=== PATIENT | female | born 2005 | race Caucasian/White ===

== ENCOUNTER 2024-02-15 18:06 | Emergency (ER) | payer BC, SELFPAY ==
[2024-02-15 18:09] VITALS: BP 119/80
--- NOTE | 2024-02-15 18:25 | ED.GENMED ---
History of Present Illness
General
Chief Complaint: Fever
Source: patient
Exam Limitations: none
Time Seen by Provider: 02/15/24 18:16
Nursing documentation reviewed up to this point in time: agreed with
History of Present Illness
History of Present Illness:
18 yo female states she gets pneumonia once a year, here for fever 102 at home, chest pains, cough, body aches, headache. Came from PCP office where she tested neg for Covid, Flu and strep.
Denies n/v/d.
Past History
Past History
ED Past Medical History: Seizures and Other (TMJ. Celiac)
ED Past Surgical History: Appendectomy and Other (Ear tubes)
Social History
Tobacco: Non-smoker
Alcohol: None
Personal: Single
Living: with family
Review of Systems
Review of Systems
Allergies reviewed?: Yes
All Other Systems: ROS reviewed and negative except as documented in HPI and ROS
Constitutional: Reports fever and fatigue
EENT: Denies sore throat or runny nose
Respiratory: Reports cough; Denies trouble breathing
Cardiac: Denies chest pain
ABD/GI: Denies abdominal pain, nausea, vomiting, diarrhea or constipated
: Denies dysuria or difficulty voiding
Musculoskeletal: Reports no symptoms
Skin: Reports no symptoms
Neurological: Reports no symptoms
Phy Exam
Physical Exam
Physical Exam:
GENERAL: No acute distress. A&Ox3.
CONSTITUTIONAL: T 102.6
EYES: clear, conjunctivae normal
Neck: Supple
ENMT: moist mucus membranes, Pharynx nl
RESPIRATORY: Regular respirations, nonlabored, lungs clear. Occasional coarse junky cough
CARDIOVASCULAR: Regular rate and rhythm, no murmurs, no rubs.
GI: Soft, nontender, normal BS
MUSCULOSKELETAL: Moves with ease. Well perfused.
SKIN: Warm, dry, pink, cheeks flushed
PSYCH: Normal mood and affect. Well kept, interactive and appropriate
NEUROLOGIC: Awake, alert and oriented. No focal neurological deficits
Sepsis
Sepsis Screening
Sepsis Assessment: Sepsis Ruled Out
Sepsis Screen
Sepsis Screen: Sepsis Ruled Out
Date: 02/15/24
Time: 21:11
Course
Orders/Labs/Results
Orders:
Orders
02/15/24 18:17
Acetaminophen [Tylenol] 1,000 mg PO NOW STA
CR Chest - 2 Views Urgent
Comment:
Reason For Exam: fever, cough
02/15/24 18:18
Test Result ONCE
02/15/24 18:32
Complete Blood Count/With Diff Urgent
Comprehensive Metabolic Panel Urgent
HCG, Serum Qualitative Screen Urgent
02/15/24 20:10
Azithromycin [Zithromax] 500 mg PO NOW STA
02/15/24 20:15
Ibuprofen [Motrin] 600 mg PO NOW STA
02/15/24 20:22
Urinalysis Reflex To Culture Urgent
Date Specimen was Collected: 02/15/24
Time Specimen was Collected: 20:12
Abnormal Lab Results
02/15/24
18:32
MCH 31.3 H pg
(27.0-31.0)
Absolute Lymphs (auto) 1.0 L 10^3/uL
(1.2-3.4)
Absolute Monos (auto) 0.7 H 10^3/uL
(0.1-0.6)
Lymphocytes % 18.7 L %
(20.5-51.1)
Monocytes % 13.3 H %
(1.7-9.3)
Glucose 105 H mg/dl
(70-99)
02/15/24 18:32
02/15/24 18:32
Vital Signs
Initial and Last Documented VS:
Initial Vital Signs
Temp Pulse Resp BP Pulse Ox
102.6 F H 124 20 119/80 100
02/15/24 18:09 02/15/24 18:09 02/15/24 18:09 02/15/24 18:09 02/15/24 18:09
Last Documented Vital Signs
Temp Pulse Resp BP Pulse Ox
99.8 F 97 20 112/70 96
02/15/24 20:49 02/15/24 20:49 02/15/24 18:09 02/15/24 20:49 02/15/24 20:49
MDM/Problems Addressed
Differential Diagnosis Includes:
PNA, bronchitis, atypical PNA
MDM/Problems Addressed:
18 yo female states she gets pneumonia once a year, here for fever 102 at home, chest pains, cough, body aches, headache. Came from PCP office where she tested neg for Covid, Flu and strep.
Denies n/v/d.
Temp 102.6 HR 126 O2 sat 100%
NAD
No meningeal signs
7:00 p.m.
CBC normal
CMP normal
HCG neg
8:00 PM:
Chest x-ray: Radiology report read:No radiographic evidence for pneumonia or other cardiopulmonary disease.
2 hours after Tylenol temperature is still 102.3 coarse junky cough noted, Ibuprofen now for fever
Will treat for atypical pneumonia with azithromycin,
8:40 p.m.
Pt drank 500 ml water
U/A neg
Stable for discharge
Temp 99.4
*Critical Care Note
Total Time (30-74mins, 75-104mins- exclusive of procedures): Not Applicable
ED Attending Note
-
Portions of this chart may have been created with voice recognition software.� Occasional wrong word or��sound alike� substitutions may have occurred due to the inherent limitations of voice recognition software.
Discharge Plan
Departure
Patient Disposition: Home (Routine Discharge)
Date of Disposition: 02/15/24
Time of Disposition: 20:43
Patient with high blood pressure during this ER visit?: No
Condition: Good
Discharge Problem:
Atypical pneumonia
Instructions: Fever, Adult (DC), Atypical Pneumonia (Mycoplasma and Viral) (DC)
Prescriptions:
New
azithromycin [Zithromax] 250 mg tablet
250 mg PO DAILY Qty: 4 0RF
No Action
oseltamivir [Tamiflu] 6 MG/1 ML suspension for reconstitution
75 mg PO BID Qty: 5 0RF
azithromycin 250 MG tablet
250 mg PO DAILY Qty: 6 0RF
prednisone 20 MG tablet
20 mg PO BID Qty: 10 0RF
prednisolone sodium phosphate 15 MG/5 ML solution
15 mg PO BID Qty: 50 0RF
azithromycin [Zithromax] 100 MG/5 ML suspension for reconstitution
250 mg PO DAILY Qty: 75 0RF
Rx Instructions:
25ml first day dose and then 12.5ml a day for Day 2-5
amoxicillin 250 MG/5 ML suspension for reconstitution
1,000 mg PO BID 5 Days Qty: 400 0RF
Referrals:
Stephanie Mendenhall PA-C [Family Provider] - As needed
Activity Restrictions/Additional Instructions:
As we discussed, I sent a prescription to your pharmacy for Azithromycin 250 mg to take daily for the next 4 days.
Drink plenty of water/fluids
Alternate Tylenol and Ibuprofen every 3 hours as needed for fever/body aches
See your doctor for recheck in 5 days if not a LOT BETTER by then.
Interventions
Interventions:
*Risk Screen - Suicide Last Done: 02/15/24 18:09
*General Assessment Last Done: 02/15/24 21:07
*Neglect/Abuse Screening Last Done: 02/15/24 18:15
ED- Fall Risk Assessment Last Done: 02/15/24 21:07
*Nursing Disposition Last Done: 02/15/24 21:07
Discharge Date and Time
Print Language: YAKUT
[2024-02-15] MEDS: TYLENOL 1000 MG PO (18:31)
[2024-02-15 18:43] LABS: % Basophils 0.7 % (0-2); % Eosinophils 0.2 % (0-6); % Immature Granulocytes 0.5 % (0-0.5); % Lymphocytes 18.7 % (20.5-51.1); % Monocytes 13.3 % (1.7-9.3); % Neutrophils 66.6 % (42.2-75.2); Absolute Monocytes 0.7 10^3/uL (0.1-0.6); Absolute Neutrophils 3.7 10^3/uL (1.4-6.5); Hematocrit 38.5 % (37.0-47.0); Hemoglobin 13.5 g/dL (12.0-16.0); Mean Corp Hgb Conc. 35.1 g/dL (33.0-37.0); Mean Corpuscular Hgb 31.3 pg (27.0-31.0); Mean Corpuscular Volume 89.1 fL (81.0-99.0); Mean Platelet Volume 10.4 fL (7.4-10.4); Nucleated Red Blood Cells % 0 %; Platelet Count 224 10^3/uL (130-400); Red Blood Cell Count 4.32 10^6/uL (4.20-5.40); Red Cell Dist. Width 12.9 % (11.5-14.5); White Blood Cell Count 5.6 10^3/uL (4.8-10.8)
[2024-02-15 18:55] LABS: HCG, Serum Qualitative Screen Negative
[2024-02-15 18:57] LABS: ALT (SGPT) 15 U/L (0-35); AST (SGOT) 23 U/L (14-36); Albumin 4.8 g/dl (3.5-5.0); Alkaline Phosphatase 50 U/L (38-126); Blood Urea Nitrogen 17 mg/dl (7-17); Calcium 9.7 mg/dl (8.4-10.2); Carbon Dioxide 24 mmol/L (22-30); Chloride 100 mmol/L (98-107); Glucose 105 mg/dl (70-99); Potassium 4.4 mmol/L (3.5-5.1); Sodium 137 mmol/L (135-145); Total Bilirubin 0.4 mg/dl (0.2-1.3); Total Protein 7.3 g/dl (6.3-8.2); eGFR > 60.00
[2024-02-15 19:34] VITALS: BP 105/63
[2024-02-15] MEDS: MOTRIN 600 MG PO (20:21)
[2024-02-15] MEDS: ZITHROMAX 500 MG PO (20:21)
[2024-02-15 20:33] LABS: Urine Albumin Trace (Neg - Trace); Urine Bilirubin Negative (Negative); Urine Character Clear (Clear); Urine Color Yellow; Urine Glucose Negative (Negative); Urine Ketone Negative (Negative); Urine Leukocyte Negative (Negative); Urine Nitrite Negative (Negative); Urine Occult Blood Negative (Negative); Urine Urobilinogen Negative (Neg - 1+)
[2024-02-15 20:49] VITALS: BP 112/70
== END 2024-02-15 21:11 | disposition home or self-care (01) ==
LOC: EMR 18:06
PROVIDERS: Registered Nurse; EMERGENCY PHYSICIAN Student in an Organized Health Care Education/Training Program; FAMILY PHYSICIAN Physician Assistant
DX: J18.9 Pneumonia, unspecified organism (principal); M26.609 Unspecified temporomandibular joint disorder, unspecified side; K90.0 Celiac disease; Z90.49 Acquired absence of other specified parts of digestive tract
CPT/HCPCS: 99283; 71046; 80053; 81003; 84703; 85025